=== PATIENT | female | born 1945 | race African-American/Black ===

== ENCOUNTER → 2025-01-04 | Outpatient (CLI) | payer MEDICARE, SELFPAY ==
[2025-01-04 13:44] LABS: Basophils # (Auto) 0.1 Thou/mm3 (0.0-0.2); Basophils % (Auto) 1 % (0-2.5); Eosinophils # (Auto) 0.2 Thou/mm3 (0.0-0.5); Eosinophils % (Auto) 2 % (0-10); Hematocrit 43.9 % (36.0-46.0); Hemoglobin 14.1 g/dL (12.0-16.0); Immature Granulocytes % (Auto) 0 % (0-0); Immature Granulocytes Auto 0.01 Thou/mm3 (0.00-0.00); Lymphocytes # (Auto) 1.5 Thou/mm3 (1.0-4.8); Lymphocytes % (Auto) 22 % (10-50); Mean Corpuscular HGB Conc 32.1 g/dl (31.0-37.0); Mean Corpuscular Hemoglobin 27.8 pg (25.0-35.0); Mean Corpuscular Volume 87 fL (80-100); Monocytes # (Auto) 0.7 Thou/mm3 (0.0-0.8); Monocytes % (Auto) 10 % (0-12); Neutrophils # (Auto) 4.5 Thou/mm3 (1.8-7.7); Neutrophils % (Auto) 65 % (37-80); Nucleated Red Blood Cell % 0 /100 WBC (0); Platelet Count 200 Thou/mm3 (140-440); RDW Standard Deviation 47.8 fL (36.4-46.3); Red Blood Count 5.07 Miln/mm3 (4.00-5.20); White Blood Count 6.9 Thou/mm3 (3.6-11.0)
[2025-01-04 13:50] LABS: Glucose Estimated Average 192 mg/dL (80-131); Hemoglobin A1C 8.3 % Hgb (4.8-6.0)
[2025-01-04 14:05] LABS: Alanine Aminotransferase 14 U/L (10-49); Albumin, Serum 4.2 gm/dL (3.4-4.8); Albumin/Globulin Ratio 1.6 (1.2-2.2); Alkaline Phosphatase 85 U/L (46-116); Anion Gap 9 (7-16); Aspartate Amino Transferase 13 U/L (0-34); BUN/Creatinine Ratio 13 Ratio (12-20); Bilirubin,Total 0.5 mg/dL (0.3-1.2); Blood Urea Nitrogen 13 mg/dL (9-23); Calcium 9.4 mg/dL (8.3-10.6); Calcium (Corrected) 9.4 mg/dL (8.5-10.1); Carbon Dioxide 25.5 mMol/L (20.0-31.0); Cardiac Risk Estimate 3.4 RATIO (3.7-5.6); Chloride 105 mMol/L (98-107); Cholesterol 148 mg/dL (132-200); Globulin 2.7 gm/dL (2.3-3.5); Glucose 168 mg/dL (74-106); HDL Cholesterol 43 mg/dL (40-60); LDL Cholesterol,Calculated 79 mg/dL (0-130); Osmolality,Calculated 281 (275-295); Potassium 4.9 mMol/L (3.4-5.1); Sodium 139 mMol/L (136-145); Total Protein 6.9 gm/dL (5.7-8.2); Triglycerides 130 mg/dL (30-150); eGFR 57 See Note
== END | disposition home or self-care (01) ==
PROVIDERS: PCP Family Medicine; Referring Provider Family Medicine; Visit Provider Family Medicine
DX: E11.65 Type 2 diabetes mellitus with hyperglycemia (principal); E78.5 Hyperlipidemia, unspecified
CPT/HCPCS: 36415; 80053; 80061; 82043; 82570; 83036; 85025

== ENCOUNTER 2025-06-10 19:35 | Emergency (ER) | payer MEDICARE, SELFPAY ==
[2025-06-10 19:37] VITALS: BP 117/72; PULSE 102; RESP 18; TEMP 36.6; O2SAT 97
--- NOTE | 2025-06-10 19:38 | EKG_ITS ---
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
--- NOTE | 2025-06-10 19:39 | PD.EDADULT ---
ED General RME/HPI General Chief complaint: Altered Mental Status Stated complaint: AMS Time Seen by Provider: 06/10/25 19:38 Arrival date/time: 06/10/25 19:35 CC: Confused lost HPI patient presents to the ER via EMS reports stable vital signs of the patient was found sitting in someone else's yard, she is approximately 1-1/2+ blocks away from her primary care provider EMS and the patient claims she has no pain shortness of breath or difficulty breathing Related Data Home Medications ?Medication ?Instructions ?Recorded ?Confirmed aspirin 325 mg tablet 325 mg PO QDAY 06/20/20 06/20/20 pioglitazone 30 mg tablet 30 mg PO QDAY 06/20/20 06/20/20 rosuvastatin 20 mg tablet 20 mg PO QDAY 06/20/20 06/20/20 sitagliptin phosphate 50 1 tab PO BID 06/20/20 06/20/20 mg-metformin 1,000 mg tablet (Janumet) Previous Rx's ?Medication ?Instructions ?Recorded cefuroxime axetil 500 mg tablet 500 mg PO BID #14 tabs 05/30/25 Allergies Allergy/AdvReac Type Severity Reaction Status Date / Time GEOVANNI Inhibitors Allergy Severe angioedema Verified 06/20/20 12:12 ARB-Angiotensin Receptor Allergy Severe angioedema Verified 06/20/20 12:13 Antagonist egg Allergy Severe Swelling Verified 06/20/20 08:38 of Lip/Tongue/Throat lisinopril Allergy Severe angioedema Verified 06/20/20 12:12 Review of Systems Review of Systems Narrative Review of Systems: GEN: No fever, no chills, no weight loss EYES: No discharge, no visual changes, no pain HEENT: No ear pain, no congestion, no sore throat PULM: No shortness of breath, no cough, no congestion CV: No chest pain, no dyspnea on exertion, no palpitations GI: No nausea, no vomiting, no diarrhea, no pain, no constipation : No frequency, no urgency, no dysuria MUSC/SKEL: No joint pain, no back pain SKIN: No rash PSYCH: No hallucinations, no depression HEME/LYMPH: No easy bleeding or bruising tendencies NEURO: No weakness, no headache Past Medical History Past Medical History NEUROLOGIC: Positive Dementia; Negative Neurological Disorders, Cerebrovascular Accident or Transient Ischemic Attacks (TIA) CARDIAC: Positive Cardiac Disorders and Hypertension; Negative Myocardial Infarction, Congestive Heart Failure or Hypotension RESPIRATORY: Negative Chronic Obstructive Pulmonary Disease (COPD), Asthma or Bronchitis GASTROINTESTINAL: Negative Gastrointestinal Disorders, Liver Cancer or Pancreatic Cancer GENITOURINARY: Negative Genitourinary Disorders or Renal Disease REPRODUCTIVE: Negative Breast Cancer or Endometriosis MUSCULOSKELETAL: Negative Musculoskeletal Disorders, Muscular Dystrophy or Bone Cancer ENT: Negative Blind or Deafness ENDOCRINE: Positive Endocrine Disorders and Diabetes Mellitus Type 2; Negative Diabetes Mellitus Type 1 HEMATOLOGIC: Negative Blood Disorders, Anemia or Sickle Cell Disease PSYCHO/SOCIAL: Negative Psychiatric Problems OTHER HISTORY: Positive Measles; Negative Down Syndrome, Developmental Delay, Falls, Blood Transfusions, Cancer or Breast Cancer Family History FAMILY HISTORY: Positive Family Cardiac Disorders; Negative Family Cancer or Family Surgery Social History SMOKING STATUS: Unknown if ever smoked SUBSTANCE USE: does not use ED Exam Narrative Physical exam: [General: Not in any acute distress Head normocephalic HEENT: Eyes pupils are PERRLA EOMs are intact mouth pink dry membranes uvula midline swallow symmetrical phonation is normal nose no rhinorrhea. All other subsystems of HEENT are within acceptable limits Neck is supple nontender Chest equal chest rise nontender to palpation Respiratory: Clear to auscultation no wheezes crackles or rubs CV: Rate rhythm is regular no murmurs rubs or clicks Abdomen is distended secondary to body habitus soft nontender no masses positive bowel sounds all 4 quadrants Back: No CVA tenderness no spinous process tenderness from cervical spine thoracic and lumbar spine Skin: Intact no petechiae rash induration ulceration or crepitus Extremities: Moving all extremity against resistance cap refill less than 2 seconds neurosensory intact. No lower extremity edema Neuro: Awake alert oriented x1 Glascow coma 15 no focal deficits] Course Course Course Narrative: Family member now at bedside at 2052, states the patient has dementia and they were notifying PD that she was missing around the time that she was arriving in the emergency room. The patient continues to have no complaints. Quality Measures none Orders Category Date Time Status EKG (ED ONLY) *Do not use* NOW Care 06/10/25 19:38 Completed EKG (ED Only) Stat Exams 06/10/25 19:38 Draft B-Type Natriuretic Peptide Stat Lab 06/10/25 19:59 Completed CBC Stat Lab 06/10/25 19:59 Completed Comprehensive Metabolic Panel Stat Lab 06/10/25 19:59 Results Creatine Kinase Stat Lab 06/10/25 19:59 Results Drug Screen,Urine Stat Lab 06/10/25 19:38 Ordered LDH (Lactate Dehydrogenase) Stat Lab 06/10/25 19:59 Results Magnesium Stat Lab 06/10/25 19:59 Results Partial Thromboplastin Time Stat Lab 06/10/25 19:59 Completed Prothrombin Time with INR Stat Lab 06/10/25 19:59 Completed Troponin I Stat Lab 06/10/25 19:59 Results Urinalysis Stat Lab 06/10/25 19:38 Ordered Vital Signs Vital signs: Vital Signs Temperature 97.8 F 06/10/25 19:37 Pulse Rate 102 H 06/10/25 19:37 Respiratory Rate 18 06/10/25 19:37 Blood Pressure 117/72 06/10/25 19:37 Pulse Oximetry (%) 97 06/10/25 19:37 Oxygen Delivery Method Room Air 06/10/25 19:37 Discharge Plan Plan Patient Disposition: HOME (Self Care) Patient condition on transfer: Stable Prescriptions/Referrals Prescriptions/Med Rec: No Action aspirin 325 mg tablet 325 mg PO QDAY pioglitazone 30 mg tablet 30 mg PO QDAY rosuvastatin 20 mg tablet 20 mg PO QDAY Janumet 50-1,000 mg tablet 1 tab PO BID cefuroxime axetil 500 mg tablet 500 mg PO BID Qty: 14 0RF Referrals: No Primary/Family,Physician [Primary Care Provider] - In 1 week Problem List Clinical Impression: Dementia Patient/Caregiver Discharge Instructions Education Materials: ED CAREGIVER SUPPORT for DEMENTIA Print Language: Luxembourgish Stand Alone Forms: Rachel Award Info., Work/School Release, Patient Portal Info Letter PA/ELECTRIC MOTOR TESTER Supervising Physician PA/ELECTRIC MOTOR TESTER Supervising Physician: Leonel eBllo ENP [facility] Clinical Information Provided by patient and EMS Medical Records Reviewed [facility] Meds/Rx Considered, not Ordered None Labs/Rad/Tests considered, not Ordered None Chronic Illness/Social Conditions which may negatively complicate care or outcome(s)-explain: None or not applicable Lab Interpretation Lab(s) interpretation(s): CBC shows no acute leukocytosis anemia thrombocytopenia Coags within acceptable limits CMP shows no significant electrolyte imbalances renal impairment glucose at 161 no transaminitis or T. bili elevation Imaging Radiology reports / interpretation(s): Patient has had no deterioration neurologic status, family members at bedside will discharge this patient home. Diagnosis Differential diagnosis: Dehydration electrolyte imbalance infection Dispositon Disposition: Discharge Home
[2025-06-10 19:59] VITALS: BP 122/74; PULSE 102; RESP 18; O2SAT 99
[2025-06-10 20:01] VITALS: PULSE 104; RESP 16; O2SAT 97; BMI 29.9
[2025-06-10 20:06] LABS: Basophils # (Auto) 0.1 Thou/mm3 (0.0-0.2); Basophils % (Auto) 1 % (0-2.5); Eosinophils # (Auto) 0.1 Thou/mm3 (0.0-0.5); Eosinophils % (Auto) 1 % (0-10); Hematocrit 39.6 % (36.0-46.0); Hemoglobin 12.3 g/dL (12.0-16.0); Immature Granulocytes Auto 0.02 Thou/mm3 (0.00-0.00); Lymphocytes # (Auto) 1.3 Thou/mm3 (1.0-4.8); Lymphocytes % (Auto) 16 % (10-50); Mean Corpuscular HGB Conc 31.1 g/dl (31.0-37.0); Mean Corpuscular Hemoglobin 26.9 pg (25.0-35.0); Mean Corpuscular Volume 87 fL (80-100); Monocytes # (Auto) 0.8 Thou/mm3 (0.0-0.8); Monocytes % (Auto) 9 % (0-12); Neutrophils # (Auto) 6.0 Thou/mm3 (1.8-7.7); Neutrophils % (Auto) 74 % (37-80); Nucleated Red Blood Cell # 0.00 Thou/mm3 (0.00-0.00); Nucleated Red Blood Cell % 0 /100 WBC (0); Platelet Count 243 Thou/mm3 (140-440); RDW Standard Deviation 48.7 fL (36.4-46.3); Red Blood Count 4.57 Miln/mm3 (4.00-5.20); White Blood Count 8.2 Thou/mm3 (3.6-11.0)
[2025-06-10 20:12] VITALS: BP 122/74; PULSE 90; RESP 24; TEMP 36.4; O2SAT 100
[2025-06-10 20:22] LABS: INR 1.1 (0.9-1.3); Partial Thromboplastin Time 28.0 Seconds (22.0-36.0); Prothrombin Time 11.5 Seconds (9.0-12.2)
[2025-06-10 20:23] LABS: B-Type Natriuretic Peptide 74 pg/mL (0-100)
[2025-06-10 21:50] LABS: Alanine Aminotransferase 7 U/L (10-49); Albumin, Serum 4.0 gm/dL (3.4-4.8); Albumin/Globulin Ratio 1.4 (1.2-2.2); Alkaline Phosphatase 67 U/L (46-116); Anion Gap 10 (7-16); Aspartate Amino Transferase < 8 U/L (0-34); BUN/Creatinine Ratio 10 Ratio (12-20); Bilirubin,Total 0.5 mg/dL (0.3-1.2); Blood Urea Nitrogen 11 mg/dL (9-23); Calcium 9.7 mg/dL (8.3-10.6); Calcium (Corrected) 9.7 mg/dL (8.5-10.1); Carbon Dioxide 25.6 mMol/L (20.0-31.0); Chloride 103 mMol/L (98-107); Creatine Kinase 39 U/L (34-171); Creatinine (Component) 1.1 mg/dL (0.6-1.3); Estimated Creatinine Clearance 34.9 mL/min (>60); Globulin 2.8 gm/dL (2.3-3.5); Glucose 161 mg/dL (74-106); Magnesium 1.7 mg/dL (1.6-2.6); Osmolality,Calculated 279 (275-295); Potassium 3.8 mMol/L (3.4-5.1); Sodium 139 mMol/L (136-145); Total Protein 6.8 gm/dL (5.7-8.2); Troponin I < 0.002 ng/mL (0.0-0.045); eGFR 50 See Note
[2025-06-10 22:15] LABS: LDH (Lactate Dehydrogenase) 169 U/L (120-246)
== END 2025-06-10 22:29 | disposition home or self-care (01) ==
PROVIDERS: Registered Nurse General Practice; Emergency Provider Emergency Medicine
DX: R41.0 Disorientation, unspecified (principal); F03.90 Unspecified dementia, unspecified severity, without behavioral disturbance, psychotic disturbance, mood disturbance, and anxiety; R94.31 Abnormal electrocardiogram [ECG] [EKG]
CPT/HCPCS: 36415; 80053; 80307; 81001; 82550; 83615; 83735; 83880; 84484; 85025; 85610; 85730; 93005; 99283